=== PATIENT | male | born 1960 | race Caucasian/White ===

== ENCOUNTER 2021-11-14 19:38 | Emergency (ER) | payer BC, OTHER ==
[2021-11-14 20:00] LABS: BASOPHILS % (AUTO) 0.4 %; EOSINOPHILS # (AUTO) 0.1 10^3/uL (0.0-0.7); EOSINOPHILS % (AUTO) 1.2 %; HCT - HEMATOCRIT 42.6 % (42.0-52.0); HGB - HEMOGLOBIN 14.5 g/dL (14.0-18.0); LYMPHOCYTES # (AUTO) 1.1 10^3/uL (1.5-3.5); LYMPHOCYTES % (AUTO) 10.6 %; MEAN CORPUSCULAR HEMOGLOBIN 36.3 pg (27.0-31.0); MEAN CORPUSCULAR VOLUME 106.8 fL (80.0-94.0); MEAN PLATELET VOLUME 9.7 fL (7.4-11.4); MONOCYTES # (AUTO) 0.5 10^3/uL (0.0-1.0); MONOCYTES % (AUTO) 5.2 %; NEUTROPHILS # (AUTO) 8.6 10^3/uL (1.5-6.6); NEUTROPHILS % (AUTO) 82.3 %; PLT - PLATELET COUNT 206 10^3/uL (130-450); RED BLOOD COUNT 3.99 10^6/uL (4.70-6.10); RED CELL DISTRIBUTION WIDTH 12.9 % (12.0-15.0); WHITE BLOOD COUNT 10.4 x10^3/uL (4.8-10.8)
[2021-11-14 20:16] LABS: ALBUMIN 3.6 g/dL (3.2-5.5); ALBUMIN/GLOBULIN RATIO 1.1 (1.0-2.2); BILIRUBIN,TOTAL 9.7 mg/dL (0.2-1.0); CALCIUM 9.5 mg/dL (8.5-10.3); CREATININE 0.7 mg/dL (0.6-1.2); POTASSIUM 3.9 mmol/L (3.5-5.0)
[2021-11-14] MEDS ORDERED: LIDOCAINE VISCOUS 2% 15 ML UDC MM STA (20:27)
[2021-11-14] MEDS ORDERED: MAG HYDROX/AL HYDROX/SIMETH 30 ML UDC PO STA (20:27)
[2021-11-14] MEDS ORDERED: SUCRALFATE 1 GM/10 ML UDC PO STA (20:27)
[2021-11-14] MEDS ORDERED: oxyCODONE 5 MG TABLET PO STA (20:27)
[2021-11-14 21:00] LABS: GLUCOSE, URINE (UA) 100 mg/dL (NEGATIVE); KETONES,URINE (UA) 15 mg/dL (NEGATIVE); LEUKOCYTE ESTERASE, URINE NEGATIVE (NEGATIVE); NITRITE,URINE NEGATIVE (NEGATIVE); OCCULT BLOOD,URINE NEGATIVE (NEGATIVE); PH,URINE 6.5 PH (5.0-7.5); PROTEIN,URINE TRACE mg/dL (NEGATIVE); UROBILINOGEN,URINE 2 E.U./dL (NORMAL)
[2021-11-14 21:03] LABS: BILIRUBIN,URINE LARGE (NEGATIVE); CLARITY,URINE CLEAR (CLEAR); ICTOTEST,URINE POSITIVE
[2021-11-14] MEDS ORDERED: HYDROmorphone 1 MG/ML CARPUJECT IVP STA ×2 (21:52→23:06)
--- NOTE | 2021-11-14 22:01 | CT Report ---
PROCEDURE: Abdomen/Pelvis WO INDICATIONS: epigastric pain TECHNIQUE: Noncontrast 5 mm thick sections acquired from the diaphragms to the symphysis. 5 mm coronal and sagi ttal reformats were then performed. For radiation dose reduction, the following was used: automated exposure control, adjustment of mA and/or kV according to patient size. COMPARISON: None. FINDINGS: Image quality: Excellent. Lung bases:There is mild dependent atelectasis. Heart: Heart is normal in size. ABDOMEN: Liver:Noncontrast evaluation of the liver demonstrates no discrete hepatic mass. Gallbladder:Surgically absent. Biliary ducts:There is intra and extra hepatic biliary ductal dilatation. The common bile duct measu res up to approximately 2.5 cm. There is an oval slightly hyperdense filling defect within the distal common bile duct at the ampulla measuring up to 1.3 cm compatible with an obstructing common duct st one. Pancreas:No pancreatic duct dilatation. No peripancreatic fat stranding or fluid collections. Spleen: Normal in size. Adrenal Glands: No adrenal nodules. Kidneys and Ureters: No hydronephrosis. Stomach and Bowel: Stomach, small bowel loops, and colon are normal in caliber and wall thickness. T he appendix is normal in appearance. Scattered colonic diverticula are present without acute divertic ulitis. Peritoneum: No abnormal intraperitoneal fluid. No free air. Ventral Wall: No hernia. Abdominal Nodes: No retroperitoneal or mesenteric adenopathy by size criteria. Vessels: Aorta and inferior vena cava are normal in size. PELVIS: Pelvic Organs: Unremarkable. Bladder:The urinary bladder is partially distended. Pelvic Nodes: No enlarged lymph nodes. Miscellaneous: No inguinal hernias are seen. Bones: Visualized osseous structures demonstrate no suspicious focal lesions. IMPRESSION: 1. Marked biliary ductal dilatation with a filling defect in the distal common bile duct consistent w ith obstructive choledocholithiasis. 2. No pancreatic duct dilatation. No CT evidence of acute pancreatitis. Reviewed by: Cassius Ramirez MD on 11/14/2021 10:00 PM PDT Approved by: Cassius Ramirez MD on 11/14/2021 10:00 PM PDT Station ID: [id number]
--- NOTE | 2021-11-14 22:09 | ED Physician Documentation ---
History of Present Illness - Stated complaint Stated Complaint: ABD PX - Chief complaint Chief Complaint: Abd Pain - History obtained from History obtained from: Patient - History of Present Illness Timing: Other (intermittent for 3 months) Pain level max: 8 Pain level now: 8 - Additonal information Additional information: Patient is a 61-year-old male who presents to the emergency department with epigastric abdominal pain. This been ongoing intermittently for the past 3 months. Seems to be worse with eating and drinking. Nothing seems to make it better. He has had a cholecystectomy several years ago. No fevers. No chills. No vomiting. No diarrhea. No constipation. Review of Systems Constitutional: denies: Fever, Chills Respiratory: denies: Dyspnea, Cough GI: denies: Vomiting, Diarrhea Skin: denies: Rash Musculoskeletal: denies: Neck pain, Back pain Neurologic: denies: Focal weakness, Numbness, Headache PD PAST MEDICAL HISTORY - Past Medical History Past Medical History: Yes Cardiovascular: Hypertension, High cholesterol Other Past Medical History: Has AAA-being watched by cardiology. Also has "one above my heart". Non Hodgkins - Past Surgical History Past Surgical History: Yes General: Cholecystectomy - Allergies Allergies/Adverse Reactions: Allergies Allergy/AdvReac Type Severity Reaction Status Date / Time No Known Drug Allergies Allergy Verified 11/14/21 19:48 - Social History Does the pt smoke?: No Smoking Status: Never smoker Does the pt drink ETOH?: Yes - Immunizations Immunizations are current?: Yes PD ED PE NORMAL - Vitals Vital signs reviewed: Yes - General General: Alert and oriented X 3, No acute distress, Other (Patient is visibly j aundiced) - HEENT HEENT: PERRL, Moist mucous membranes - Neck Neck: Supple, no meningeal sign - Cardiac Cardiac: RRR, Strong equal pulses - Respiratory Respiratory: No respiratory distress, Clear bilaterally - Abdomen Abdomen: Soft, Non tender, Non distended - Derm Derm: Warm and dry, No rash - Extremities Extremities: No edema, No calf tenderness / cord - Neuro Neuro: Alert and oriented X 3 - Psych Psych: Normal mood, Normal affect Results - Vitals Vitals: Vital Signs - 24 hr 11/14/21 11/14/21 19:42 21:48 Temperature 36.3 C L Heart Rate 78 88 Respiratory 14 16 Rate Blood Pressure 154/71 H 145/80 H O2 Saturation 100 99 Oxygen O2 Source Room air - Labs Labs: Laboratory Tests 11/14/21 11/14/21 11/14/21 19:56 19:56 20:50 WBC 10.4 RBC 3.99 L Hgb 14.5 Hct 42.6 MCV 106.8 H MCH 36.3 H MCHC 34.0 RDW 12.9 Plt Count 206 MPV 9.7 Neut # (Auto) 8.6 H Lymph # (Auto) 1.1 L [place] # (Auto) 0.5 Eos # (Auto) 0.1 Baso # (Auto) 0.0 Absolute Nucleated RBC 0.00 Nucleated RBC % 0.0 Sodium 137 Potassium 3.9 Chloride 102 Carbon Dioxide 27 Anion Gap 8.0 BUN 14 Creatinine 0.7 Estimated GFR (MDRD) 115 Glucose 129 H Calcium 9.5 Total Bilirubin 9.7 H AST 125 H ALT 180 H Alkaline Phosphatase 335 H Total Protein 7.0 Albumin 3.6 Globulin 3.4 Albumin/Globulin Ratio 1.1 Lipase 36 Urine Color DARK YELLOW Urine Clarity CLEAR Urine pH 6.5 Ur Specific [place] 1.020 Urine Protein TRACE Urine Glucose (UA) 100 H Urine Ketones 15 H Urine Occult Blood NEGATIVE Urine Nitrite NEGATIVE Urine Bilirubin LARGE H Urine Urobilinogen 2 H Ur Leukocyte Esterase NEGATIVE Ur Microscopic Review NOT INDICATED Urine Culture Comments NOT INDICATED - Rads (name of study) CT abdomen and pelvis Radiology: Final report received, EMP read contemporaneously, See rad report Right upper quadrant ultrasound Radiology: Final report received, EMP read contemporaneously, See rad report PD MEDICAL DECISION MAKING - ED course Complexity details: reviewed results, re-evaluated patient, considered differential, d/w patient ED course: 61-year-old male presents to the emergency department with jaundice and abdominal pain. He is found to have choledocholithiasis. He has had a cholecystectomy in the past. There appears to be an approximately 1.3 cm stone in the distal common bile duct. Marked biliary ductal dilatation. No fever. Pain well controlled. No leukocytosis. We do not have GI available here for an ERCP. He states he has seen MARA Armando at [facility] in the past. We will contact them to see if they have a bed available. Patient will be signed out to the oncoming emergency department physician for further care. This document was made in part using voice recognition software. While efforts are made to proofread this document, sound alike and grammatical errors may occur. IMPRESSION: 1. Prominent intrahepatic and extrahepatic biliary ductal dilatation. Recommend correlation with concurrent CT which demonstrates an obstructing stone in the distal common bile duct. 2. Hepatic steatosis. IMPRESSION: 1. Marked biliary ductal dilatation with a filling defect in the distal common bile duct consistent with obstructive choledocholithiasis. 2. No pancreatic duct dilatation. No CT evidence of acute pancreatitis. Departure - Departure Disposition: 02 Transfer Acute Care Hosp Clinical Impression: Choledocholithiasis, Jaundice, Hyperbilirubinemia Condition: Stable
[2021-11-14] MEDS ORDERED: SODIUM CHLORIDE 0.9% 1,000 ML IV STA ×2 (22:19)
--- NOTE | 2021-11-14 22:32 | Ultrasound Report ---
PROCEDURE: Abdomen Limited INDICATIONS: hyperbilirubinemia, elevated lft TECHNIQUE: Real-time focused scanning was performed of the abdomen, with image documentation. COMPARISON: Concurrent CT abdomen pelvis 11/14/2021 FINDINGS: The liver demonstrates increased echogenicity consistent with fatty infiltration. There is patent hep atopedal flow demonstrated within the main portal vein. The gallbladder is surgically absent. There is prominent intra and extra hepatic biliary ductal dilatation, with the common hepatic duct me asuring up to 1.1 cm and the visualized common bile duct measuring up to 1.6 cm. The distal common bi le duct is not well visualized on study. The pancreas was not well seen due to bowel gas. Right kidney measures up to 10.9 cm. No hydronephrosis. IMPRESSION: 1. Prominent intrahepatic and extrahepatic biliary ductal dilatation. Recommend correlation with conc urrent CT which demonstrates an obstructing stone in the distal common bile duct. 2. Hepatic steatosis. Reviewed by: Cassius Ramirez MD on 11/14/2021 10:30 PM PDT Approved by: Cassius Ramirez MD on 11/14/2021 10:30 PM PDT Station ID: [id number]
--- NOTE | 2021-11-14 23:16 | ED Physician Documentation ---
ED Addendum - Addendum Addendum: 11/14/21 23:04 Patient received in signout from Dr. Tesfaye. He is found to have obstructive choledocholithiasis. Patient's farm service adviser is at [facility]. I spoke with Dr. Rajendra Eugene (hospitalist) who graciously agrees to accept the patient in transfer. Departure - Departure Disposition: 02 Transfer Acute Care Hosp Clinical Impression: Choledocholithiasis, Jaundice, Hyperbilirubinemia Condition: Stable
[2021-11-15 00:06] VITALS: BP 154/84
== END 2021-11-15 00:20 | disposition short-term general hospital (02) ==
LOC: ED 19:38
DX: K80.51 Calculus of bile duct without cholangitis or cholecystitis with obstruction (principal); R17 Unspecified jaundice; E80.6 Other disorders of bilirubin metabolism
CPT/HCPCS: 36415; 74176; 76705; 80053; 81003; 83690; 85025; 87635; 96374; 96376; 99284; 99285; A9270; J1170; 81001; 87086

== ENCOUNTER 2021-11-15 00:25 | Outpatient (CLI) | payer BC | END 2021-11-15 23:59 | disposition short-term general hospital (02) | LOC: EMS 00:25 | PROVIDERS: ATTEND Emergency Medicine | DX: K80.51 Calculus of bile duct without cholangitis or cholecystitis with obstruction (principal) | CPT/HCPCS: A0425; A0426 ==